=== PATIENT | male | born 1940 | race Caucasian/White ===

== ENCOUNTER → 2017-07-09 | Day surgery (SDC) | payer MEDICARE, BC ==
[~2017-07-09] MED LIST: Dextrose 5%-0.45% NaCl 1,000 ML IV ONE; Dextrose 5%-0.45% NaCl 1,000 ML IV SCH; Midazolam 1 MG/ML 2 ML SDV IV ONE; Midazolam 1 MG/ML 2 ML SDV ONE; Sodium Chloride 0.9% 10 ML Syringe FLUSH PRN; fentaNYL 100 MCG/2 ML SDV IV ONE; fentaNYL 100 MCG/2 ML SDV ONE
--- NOTE | 2017-07-09 13:08 | OR ---
DATE: 07/09/2017 PROCEDURE: Esophagogastroduodenoscopy and multiple pinch biopsies. INSTRUMENT USED: GIF-Q180 Olympus video panendoscope. PREMEDICATIONS: No oral topical anesthesia used. Fentanyl 100 mcg intravenous, Versed 2 mg intravenous. Nasal O2 cannula. The procedure was done under pulse oximetry, BP recording, and telemetry monitor. INDICATION: The patient with persistent heartburn and dysphagia unexplained, and not responsive to medical measures. Esophagogastroduodenoscopy is performed for detection of any active erosive lesions, Joel's esophagus and/or malignancy also under consideration, H. pylori status to be determined, esophageal dilatations if indicated, endoscopic hemostasis therapy if needed. DESCRIPTION OF PROCEDURE: The scope was passed with ease. Adequate visualization of the esophagus was made from proximal to distal areas. No upper esophageal lesions identified. Grade A erosive changes were noted by [place] criteria. There was some stricture of the distal esophagus, but the tip of the scope was passed with ease to visualize the gastric mucosa. No uphill or downhill esophageal varices. No Jennifer-Samson tear. No esophageal polyp or tumor mass identified. No proximal gastric varices noted. Gastric fundus examination by retroflexion showed no polypoid lesions. No gastric ulcer, malignant mass, or vascular ectasia identified. Duodenal bulb showed no ulcer. Visualized second part of the duodenum was unremarkable. Multiple pinch biopsies taken from the gastric antrum and proximal body and sent for PyloriTek test for H. pylori, and if negative in an hour tissues to be sent for histopathology. No bleeding was noted from the visualized areas at the completion of examination. Photographs were taken of the duodenal bulb, gastric antrum, fundus, and distal esophagus. IMPRESSION: 1. Grade A gastroesophageal reflux disease. 2. Peptic esophageal stricture. The patient tolerated the procedure well. [facility] /[id number]
--- NOTE | 2017-07-09 13:08 | OR ---
DATE: 07/09/2017 PROCEDURE: Esophageal dilatation. INSTRUMENT USED: [place]te esophageal bougie dilator, Samoan size 48. PREMEDICATIONS: Done after EGD. INDICATION: Peptic esophageal stricture. DESCRIPTION OF PROCEDURE: Esophageal dilatation was done with ease using Samoan size 48 dilator. No blood was noted at dilated tip after completion. IMPRESSION: Peptic esophageal stricture. The patient tolerated the procedure well. [facility] /[id number]
== END | disposition home or self-care (01) ==
LOC: DL.ENDO 07:21
PROVIDERS: ATTEND Internal Medicine Gastroenterology
DX: K31.9 Disease of stomach and duodenum, unspecified (principal); E66.09 Other obesity due to excess calories; E11.9 Type 2 diabetes mellitus without complications; I10 Essential (primary) hypertension; E78.5 Hyperlipidemia, unspecified; Z98.890 Other specified postprocedural states; Z79.899 Other long term (current) drug therapy
CPT/HCPCS: 43239; 87077; J2250; J3010; J7042; 88305

== ENCOUNTER 2024-07-10 20:25 | Emergency (ER) | payer MEDICARE, BC ==
[2024-07-10] MEDS: fentaNYL 100 MCG/2 ML SDV IVPUSH ONE ×2 (20:35→21:52)
[2024-07-10] MEDS: fentaNYL 100 MCG/2 ML SDV ONE (20:35)
[2024-07-10 21:04] LABS: HEMATOCRIT 42.3 % (40.0-54.0); HEMOGLOBIN 13.7 g/dL (14.0-18.0); MEAN CORPUSCULAR HEMOGLOBIN 31.5 pg (27.0-34.0); MEAN CORPUSCULAR HGB CONC 32.4 g/dL (33.0-35.0); MEAN CORPUSCULAR VOLUME 97.2 fL (80-100); PLATELET COUNT,PLT 181 10^3/uL (150-450); RED BLOOD CELL COUNT 4.35 10^6/uL (4.6-6.2); WHITE BLOOD CELL COUNT,WBC 7.3 10^3/uL (5.0-10.0)
[2024-07-10 21:06] LABS: BASOPHILS PERCENT AUTO 0.5 % (0.0-1.0); LYMPHOCYTES PERCENT AUTO 23.6 % (20.5-50.1); MONOCYTES PERCENT AUTO 12.8 % (2-8); NEUTROPHILS PERCENT AUTO 50.1 % (42.2-75.2)
[2024-07-10 21:14] LABS: APPEARANCE,URINE CLEAR (CLEAR); BILIRUBIN,URINE NEGATIVE (NEGATIVE); COLOR,URINE YELLOW (YELLOW); GLUCOSE,URINE 100 (NEGATIVE); KETONES,URINE NEGATIVE (NEGATIVE); LEUKOCYTE ESTERASE,URINE NEGATIVE (NEGATIVE); NITRITE,URINE NEGATIVE (NEGATIVE); OCCULT BLOOD,URINE TRACE-INTACT (NEGATIVE); PH,URINE 6.5 (5.0-9.0); PROTEIN,URINE NEGATIVE (NEGATIVE)
[2024-07-10 21:15] LABS: INR 0.9 (0.9-1.2); PROTHROMBIN TIME 9.8 SEC (9.0-12.0); PTT,PARTIAL THROMBOPLSTIN TIME 24.5 SEC (22.0-34.0)
[2024-07-10 21:18] LABS: ALANINE AMINOTRANSFERASE,ALT 19 U/L (16-63); ALKALINE PHOSPHATASE 89 U/L (46-116); ANION GAP 10.7 mEq/L (7-13); ASPARTATE AMNIOTRANSFERASE,AST 14 U/L (15-37); BILIRUBIN TOTAL 0.4 mg/dL (0.2-1.0); BLOOD UREA NITROGEN,BUN 26 mg/dL (7-18); BUN/CREATININE RATIO 20.5 (No establ ref range); CALCIUM 8.9 mg/dL (8.5-10.1); CARBON DIOXIDE,CO2 29 mmol/L (21-32); CHLORIDE,CL 103 mmol/L (98-107); CREATININE 1.27 mg/dL (0.70-1.30); GLUCOSE RANDOM 195 mg/dL (70-99); MAGNESIUM 1.4 mg/dL (1.8-2.4); POTASSIUM,K 3.7 mmol/L (3.5-5.1); PROTEIN TOTAL,TP 7.1 g/dL (6.4-8.2); SODIUM,NA 139 mmol/L (136-145)
[2024-07-10 21:20] LABS: A/G RATIO 0.73; ESTIMATED GFR 56 mL/min (>=60)
[2024-07-10] MEDS: Sodium Chloride 0.9% 1,000 ML IV SCH (21:31)
[2024-07-10] MEDS: Sodium Chloride 0.9% 10 ML Syringe FLUSH PRN (21:31)
[2024-07-10] MEDS: Albuterol/Ipratropium 3.0-0.5 MG/3 ML Neb Soln NEB ONE (21:31)
[2024-07-10 21:36] LABS: BACTERIA,URINE FEW /HPF (0-FEW/HPF); EPITHELIAL CELLS,URINE FEW /HPF (NOT SEEN)
[2024-07-10 21:42] LABS: EOSINOPHILS PERCENT MAN 12 % (1-3); LYMPHOCYTES PERCENT MAN 22 % (20-50); MONOCYTES PERCENT MAN 12 % (2-8); SEG NEUTROPHILS PERCENT MAN 54 % (42-75)
== END 2024-07-10 22:19 ==
LOC: DL.ED 20:25
DX: S72.142A Displaced intertrochanteric fracture of left femur, initial encounter for closed fracture (principal); I15.9 Secondary hypertension, unspecified; F17.210 Nicotine dependence, cigarettes, uncomplicated; E78.00 Pure hypercholesterolemia, unspecified; I10 Essential (primary) hypertension; J44.9 Chronic obstructive pulmonary disease, unspecified; E66.9 Obesity, unspecified; E11.9 Type 2 diabetes mellitus without complications; Z66 Do not resuscitate; Z79.4 Long term (current) use of insulin; Z79.84 Long term (current) use of oral hypoglycemic drugs; W01.198A Fall on same level from slipping, tripping and stumbling with subsequent striking against other object, initial encounter
CPT/HCPCS: 36415; 72192; 80053; 81001; 83735; 84484; 85025; 85610; 85730; 93005; 93010; 94640; 96361; 96374; 96376; 99285; J3010; J7030; J3490; J7620-GY